=== PATIENT | female | born 1970 | race Caucasian/White ===

== ENCOUNTER → 2021-04-03 10:21 | Outpatient (BNVA) | payer BC, SELFPAY | PROVIDERS: PCP Family Medicine; Visit Provider Internal Medicine | DX: R21 Rash and other nonspecific skin eruption (principal); I89.0 Lymphedema, not elsewhere classified; M25.50 Pain in unspecified joint; Z79.899 Other long term (current) drug therapy; R53.83 Other fatigue; Z11.59 Encounter for screening for other viral diseases; H53.9 Unspecified visual disturbance | CPT/HCPCS: 82533; 99204 ==

== ENCOUNTER 2021-04-03 13:45 | Outpatient (CLI) | payer BC, SELFPAY ==
--- NOTE | 2021-04-03 13:53 | XR_ITS ---
WS: [email or web address] Exam: XR hand RT 2V [id number] Date/Time of Exam: 04/03/2021 1:56 PM Reason For Exam: M25.50 - Pain in unspecified joint Findings: No fractures, soft tissue swelling, or unusual calcifications are noted. The hand shows normal bony alignment. There is no irregularity of the bony architecture. XR/XR hand RT 2V [id number] IMPRESSION: Normal right hand.
--- NOTE | 2021-04-03 13:53 | XR_ITS ---
WS: [email or web address] Exam: XR sacroiliac jts m 3V [id number] Date/Time of Exam: 04/03/2021 1:56 PM Reason For Exam: L40.9 - Psoriasis, unspecified No fracture or dislocation. Moderate DJD of both SI joints. The SI joints are open. No destructive avel ne changes. XR/XR sacroiliac jts m 3V [id number] IMPRESSION: 1. Bilateral SI joint DJD. No fracture or bone destruction.
--- NOTE | 2021-04-03 13:53 | XR_ITS ---
WS: [email or web address] Exam: XR hand LT 2V [id number] Date/Time of Exam: 04/03/2021 1:56 PM Reason For Exam: M25.50 - Pain in unspecified joint Findings: No fractures, soft tissue swelling, or unusual calcifications are noted. The hand shows normal bony alignment. There is no irregularity of the bony architecture. XR/XR hand LT 2V [id number] IMPRESSION: Normal left hand.
--- NOTE | 2021-04-03 13:53 | XR_ITS ---
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 The lungs are hyperinflated and clear. Normal cardiomediastinal structures. No pleural effusions. Mil d spondylosis and degenerative disc changes in the thoracic spine. XR/XR chest 2V* 38127 IMPRESSION: 1. Pulmonary hyperinflation which might indicate obstructive lung disease. 2. No acute process noted.
--- NOTE | 2021-04-03 13:53 | XR_ITS ---
WS: [email or web address] Exam: XR foot LT 2V 15012 Date/Time of Exam: 04/03/2021 1:56 PM Reason For Exam: M25.50 - Pain in unspecified joint Findings: The foot was examined in multiple views and reveals no fractures or displacements of bone. No bony a nomalies are noted. The bony elements are in adequate alignment. The joint spaces are smooth and eq uidistant. XR/XR foot LT 2V 61176 IMPRESSION: Negative left foot.
--- NOTE | 2021-04-03 13:53 | XR_ITS ---
WS: [email or web address] Exam: XR foot RT 2V 74705 Date/Time of Exam: 04/03/2021 1:56 PM Reason For Exam: M25.50 - Pain in unspecified joint No fracture or dislocation. No soft tissue foreign bodies. Small periarticular calcification along th e fifth MP joint. XR/XR foot RT 2V 29065 IMPRESSION: 1. No fracture or other significant finding.
== END 2021-04-03 13:46 | disposition home or self-care (01) ==
LOC: RAD 13:50
PROVIDERS: PCP Family Medicine; Visit Provider Internal Medicine
DX: L40.9 Psoriasis, unspecified (principal); M25.50 Pain in unspecified joint; Z79.899 Other long term (current) drug therapy
CPT/HCPCS: 71046; 72202; 73120; 73620; 82533

== ENCOUNTER 2021-04-05 09:12 | Outpatient (CLI) | payer BC, SELFPAY ==
[2021-04-05 10:58] LABS: C Reactive Protein 0.7 mg/L (0.0-4.9); Complement C3 120 mg/dL (90-180); Creatine Phosphokinase 123 U/L (26-192)
[2021-04-05 11:12] LABS: Cortisol Random 4.88 ug/dL (2.47-19.5); Hepatitis B Core AB, Total Non-Reactive (Nonreactive); Hepatitis B Surface Antigen Non-Reactive (Nonreactive); Hepatitis C Virus Antibody Non-Reactive (Nonreactive)
[2021-04-05 11:30] LABS: Ferritin 82 ng/mL (15-150); Iron 100 ug/dL (37-145)
[2021-04-05 11:46] LABS: 25 Hydroxy Vitamin D 35 ng/mL (30-100); Vitamin B12 1038 pg/mL (232-1245)
[2021-04-06 13:14] LABS: Angiotensin Converting Enzyme 25 U/L (9-67)
[2021-04-06 14:00] LABS: Erythrocyte Sedimentation Rate 9 mm/hr (0-15)
== END 2021-04-05 09:13 | disposition home or self-care (01) ==
PROVIDERS: PCP Family Medicine; Visit Provider Internal Medicine
DX: I89.0 Lymphedema, not elsewhere classified (principal); M25.50 Pain in unspecified joint; R53.83 Other fatigue; Z79.899 Other long term (current) drug therapy; Z11.59 Encounter for screening for other viral diseases
CPT/HCPCS: 36415; 82164; 82306; 82533; 82550; 82595; 82607; 82728; 83540; 85651; 86140; 86160; 86704; 86803; 87340

== ENCOUNTER 2021-04-18 09:59 | Outpatient (CLI) | payer BC, SELFPAY ==
[2021-04-23 21:07] LABS: Cryoglobulins Qualitative None Detected (None Detected)
== END 2021-04-18 10:00 | disposition home or self-care (01) ==
LOC: LAB 10:13
PROVIDERS: PCP Family Medicine; Visit Provider Internal Medicine
DX: M25.59 Pain in other specified joint (principal); Z79.899 Other long term (current) drug therapy; I89.0 Lymphedema, not elsewhere classified; R53.83 Other fatigue
CPT/HCPCS: 36415; 82595

== ENCOUNTER → 2021-04-19 11:29 | Outpatient (BNVA) | payer BC, SELFPAY | PROVIDERS: PCP Family Medicine; Visit Provider Internal Medicine | DX: R21 Rash and other nonspecific skin eruption (principal); M25.50 Pain in unspecified joint; M35.9 Systemic involvement of connective tissue, unspecified; I73.00 Raynaud's syndrome without gangrene; R53.83 Other fatigue; M53.3 Sacrococcygeal disorders, not elsewhere classified | CPT/HCPCS: 99214 ==

== ENCOUNTER 2021-05-15 12:51 | Outpatient (CLI) | payer BC, SELFPAY ==
--- NOTE | 2021-05-15 13:17 | ECG_ITS ---
[facility] Test Date: 2021-05-15 Pat Name: Mercedes Hill Department: Room: Gender: Female Home Manager: Gilma Case : [id number] Requested By: Terence Charles Order Number: [id number] Apolonia MD: Rizwan Durham M.D. Interpretive Statements NAME OF STUDY: TREADMILL STRESS TEST INDICATION: Chest Pain, PROCEDURE: At the baseline, the patient's blood pressure was 123/78 with a heart rate of 90/min. The baseline electrocardiogram showed normal sinus rhythm with some nonspecific T wave changes. Heavy baseline artifact were noted. The patient exercised for 6 minutes and 40 seconds on a standard Yogesh protocol. Patient attained a maximum heart rate of 168 beats per minute(98% of the maximum predicted heart rate) with a blood pressure at the peak exercise of 195/97 mm Hg. The EKG at the peak exercise revealed diffuse nonspecific ST-T changes. Patient did not have any chest pain or any significant cardiac arrhythmias with the exercise During the recovery phase, there were no new changes. Blood pressure at the end of the recovery phase was 132/71 mm Hg with a heart rate of 96 per minute. CONCLUSION: 1. Nonspecific EKG changes with the treadmill exercise 2. No exercise-induced chest pain or cardiac arrhythmia 3. Fair exercise tolerance, attained a maximum of 10.2 METs 4. Hypertensive response to exercise. Electronically Signed On 05-18-2021 10:45:20 [employer] by Rizwan Durham M.D. [email or web address]
[2021-05-15 13:18] VITALS: BMI 32.2
[2021-05-15 13:35] VITALS: BP 150/59; PULSE 100
== END 2021-05-15 12:52 | disposition home or self-care (01) ==
LOC: CDL 12:52
PROVIDERS: PCP Family Medicine; Visit Provider Family Medicine
DX: R07.9 Chest pain, unspecified (principal)
CPT/HCPCS: 93017

== ENCOUNTER → 2021-09-17 16:08 | Outpatient (BNVA) | payer BC, SELFPAY | PROVIDERS: PCP Family Medicine; Visit Provider Internal Medicine | DX: M25.50 Pain in unspecified joint (principal) | CPT/HCPCS: 36415; 80053; 81003; 82550; 84100; 84182; 84443; 85025; 85651; 86235 ==

== ENCOUNTER 2021-10-17 06:00 | Outpatient (RCR) | payer BC, SELFPAY | END 2021-11-15 23:59 | disposition home or self-care (01) | LOC: SPT 06:00 | PROVIDERS: PCP Family Medicine; Referring Provider Family Medicine; Visit Provider Family Medicine | DX: R60.0 Localized edema (principal) | CPT/HCPCS: 97110; 97140; 97161 ==

== ENCOUNTER 2021-11-27 12:02 | Outpatient (CLI) | payer OTHER, SELFPAY ==
[2021-11-27 12:32] LABS: Basophils % 0.6 %; Eosinophils # 0.2 10^3/uL (0.0-0.8); Eosinophils % 3.9 %; Hematocrit 35.9 % (37.0-47.0); Hemoglobin 12.1 g/dL (11.5-15.3); Lymphocytes # 2.5 10^3/uL (0.8-4.8); Lymphocytes % 51.6 %; Mean Corpuscular HGB Conc 33.7 g/dL (30.0-36.0); Mean Corpuscular Hemoglobin 32.4 pg (28.0-34.0); Mean Corpuscular Volume 96.2 fl (81-99); Mean Platelet Volume 11.8 fL (7.4-10.4); Monocytes # 0.5 10^3/uL (0.2-0.9); Monocytes % 9.4 %; Neutrophils # 1.67 10^3/uL (1.8-7.7); Neutrophils % 34.3 %; Nucleated Red Blood Cells % 0 %; Platelet Count 156 10^3/cmm (130-400); Red Blood Count 3.73 10^6/uL (4.1-5.3); Red Cell Distribution Width 11.9 % (12.1-15.1); White Blood Count 4.9 10^3/uL (4.0-10.0)
[2021-11-27 12:36] LABS: Erythrocyte Sedimentation Rate 4 mm/hr (0-15)
[2021-11-27 13:01] LABS: Alanine Aminotransferase 15 U/L (0-33); Albumin Level 3.9 g/dL (3.5-5.2); Alkaline Phosphatase 37 IU/L (35-105); Anion Gap 10.7 (5-19); Aspartate Amino Transferase 19 U/L (0-32); Blood Urea Nitrogen 11 mg/dL (6-20); Calcium 8.5 mg/dL (8.5-10.5); Carbon Dioxide 29 mmol/L (22-29); Chloride 102 mmol/L (98-107); Glomerular Filtration Rate 105.8 mL/min (90-130); Glucose 86 mg/dL (65-115); Osmolality Calculated 285 mOsm/kg (285-295); Potassium 3.7 mmol/L (3.5-5.1); Sodium 138 mmol/L (136-145); Total Bilirubin 0.2 mg/dL (0.15-1.2); Total Protein 6.9 g/dL (6.6-8.7)
[2021-11-27 13:10] LABS: Slide Review Slide Review Perform
--- NOTE | 2021-11-27 16:53 | XR_ITS ---
WS: [email or web address] LUMBAR SPINE: 3 VIEWS TECHNIQUE: AP, lateral and L5-S1 spot. HISTORY: R53.1 - Weakness COMPARISON: None available. Lateral radiograph is rotated. Posterior alignment appears near normal with only very minimal LEFT cu rvature of the lumbar spine. Facet joints are mildly sclerotic and narrowed throughout the lumbar spi ne. Disc spaces are mildly narrowed. Small endplate osteophytes. No fracture identified. SI joints are symmetric bilaterally. No soft tissue abnormalities. Prior cholecystectomy. XR/XR lumbar spine 2-3V* 23241 IMPRESSION: 1. Moderate spondylitic changes throughout the lumbar spine. No fracture. 2. Prior cholecystectomy.
--- NOTE | 2021-11-27 16:53 | XR_ITS ---
WS: [email or web address] THORACIC SPINE TECHNIQUE: AP and lateral views are performed. HISTORY: R53.1 - Weakness COMPARISON: None available. Mild increase in thoracic kyphosis. Multilevel mild disc space narrowing and osteophytosis throughout the thoracic spine. No fractures. Mild curvature to the LEFT of the lower thoracic spine. XR/XR thoracic spine 3V* [id number] IMPRESSION: Mild LEFT curvature and moderate spondylosis. No fracture.
--- NOTE | 2021-11-27 16:53 | XR_ITS ---
WS: [email or web address] CERVICAL SPINE 3 VIEWS HISTORY: R53.1 - Weakness COMPARISON: None available. Straightening of the normal cervical lordosis. C5 retrolisthesis by 3 mm. Very minimal retrolisthesis less than 2 mm of C4 and C6. Disc spaces are moderately narrowed at C5-6 and C6-7. Lateral masses and odontoid process are incompletely visualized. No prevertebral soft tissue swelling . Soft tissues are normal. XR/XR cervical spine 3V* [id number] IMPRESSION: 1. Straightening of the normal cervical lordosis. 2. C5 retrolisthesis by 3 mm. 3. Moderate degenerative disc disease at C5-6 and C6-7.
== END 2021-11-27 12:03 | disposition home or self-care (01) ==
PROVIDERS: PCP Family Medicine; Visit Provider Internal Medicine
DX: M35.9 Systemic involvement of connective tissue, unspecified (principal); M53.3 Sacrococcygeal disorders, not elsewhere classified; Z79.899 Other long term (current) drug therapy; R53.1 Weakness; M25.50 Pain in unspecified joint; R53.83 Other fatigue
CPT/HCPCS: 72040; 72072; 72100; 80053; 85025; 85651; 86140

== ENCOUNTER → 2022-10-10 16:31 | Outpatient (BNVA) | payer OTHER, SELFPAY | PROVIDERS: PCP Family Medicine; Visit Provider Internal Medicine | DX: M35.9 Systemic involvement of connective tissue, unspecified (principal); M54.50 Low back pain, unspecified; R29.898 Other symptoms and signs involving the musculoskeletal system | CPT/HCPCS: 36415; 80053; 84443; 85025; 85651; 86140 ==

== ENCOUNTER → 2022-11-12 09:17 | Outpatient (BNVA) | payer OTHER, SELFPAY | PROVIDERS: PCP Family Medicine; Visit Provider Physician Assistant | DX: M54.2 Cervicalgia (principal) | CPT/HCPCS: 72050 ==

== ENCOUNTER 2022-12-02 09:22 | Outpatient (CLI) | payer OTHER, SELFPAY ==
--- NOTE | 2022-12-02 09:30 | MR_ITS ---
WS: [email or web address] MRI CERVICAL SPINE NONCONTRAST TECHNIQUE: Sagittal T1, T2 and STIR imaging. Axial T2, gradient, and fiesta imaging. CLINICAL INFORMATION: chronic neck pain COMPARISON: None. FINDINGS: Straightening of the normal cervical lordosis. Moderate spondylitic changes. Slight retrolisthesis C5 on C6. Disc bulging worse at C5-C6 and C6-C7. C2-C3: Normal. C3-C4: Mild facet arthropathy. Spinal canal and foramen are patent. C4-C5: Mild facet arthropathy. Mild LEFT and no significant RIGHT foraminal narrowing. Spinal canal i s patent. C5-C6: Slight retrolisthesis. Disc osteophyte complex with slight indentation on cervical cord. Mild central canal stenosis. Moderate to severe RIGHT and mild to moderate LEFT bony foraminal narrowing. Mild facet arthropathy. C6-C7: Central disc osteophyte protrusion with indentation on cervical cord. Mild central canal steno sis. Moderate LEFT and mild RIGHT bony foraminal narrowing. Mild facet arthropathy. C7-T1: Mild facet arthropathy. Spinal canal and foramen are patent Visualized brain stem structures: Normal. Prevertebral soft tissues: Normal. MR/MR cervical spin wo con* [id number] IMPRESSION: 1. Straightening of the normal cervical lordosis. Slight retrolisthesis C5 on C6. 2. Mild central canal stenosis C5-C6 and C6-C7 due to disc osteophyte protrusi ons with slight indentation on cervical cord described above. 3. Moderate to severe RIGHT C5-C6 bony foraminal narrowing. 4. Mild to moderate LEFT C5-C6 and moderate LEFT C6-C7 bony foraminal narrowin g. 5. Moderate facet arthropathy C5-C6 and C6-C7.
== END 2022-12-02 09:23 | disposition home or self-care (01) ==
LOC: RAD 09:24
PROVIDERS: PCP Family Medicine; Visit Provider Physician Assistant
DX: M48.02 Spinal stenosis, cervical region (principal); M47.812 Spondylosis without myelopathy or radiculopathy, cervical region; R53.1 Weakness; G89.29 Other chronic pain
CPT/HCPCS: 72141

== ENCOUNTER 2023-01-13 14:16 | Outpatient (CLI) | payer OTHER, SELFPAY ==
--- NOTE | 2023-01-13 14:27 | MM_ITS ---
WS: [email or web address] SCREENING DIGITAL TOMOSYNTHESIS MAMMOGRAM WITH CAD HISTORY: SCREENING COMPARISON: None available. Bilateral CC and MLO with tomosynthesis views submitted. Synthetic mammography reviewed. Computer aid ed detection analyzed. Breast composition: There are scattered areas of fibroglandular density. No suspicious masses, microc alcifications or architectural distortion. IMPRESSION: MM/[place] [id number] BI-RADS: 1-Negative FOLLOW UP: 1 Year Follow-up
== END 2023-01-13 14:17 | disposition home or self-care (01) ==
LOC: RAD 14:18 → MOBLMAM 14:26
PROVIDERS: PCP Family Medicine; Visit Provider Family Medicine
DX: Z12.31 Encounter for screening mammogram for malignant neoplasm of breast (principal)
CPT/HCPCS: 77063; 77067

== ENCOUNTER → 2023-01-28 16:05 | Outpatient (BNVA) | payer OTHER, SELFPAY | PROVIDERS: PCP Family Medicine; Visit Provider Internal Medicine | DX: R20.2 Paresthesia of skin (principal); M35.9 Systemic involvement of connective tissue, unspecified; M54.50 Low back pain, unspecified | CPT/HCPCS: 36415; 80053; 83520; 85025; 85651; 86140 ==

== ENCOUNTER → 2023-05-08 07:59 | Outpatient (BNVA) | payer OTHER, SELFPAY | PROVIDERS: PCP Family Medicine; Visit Provider Physician Assistant | DX: M47.22 Other spondylosis with radiculopathy, cervical region; M48.02 Spinal stenosis, cervical region; M50.221 Other cervical disc displacement at C4-C5 level; M50.222 Other cervical disc displacement at C5-C6 level | CPT/HCPCS: 72040; 72050 ==

== ENCOUNTER 2023-05-08 10:24 | Outpatient (CLI) | payer OTHER, SELFPAY ==
[2023-05-08 10:56] LABS: Basophils % 0.5 %; Eosinophils % 1.1 %; Lymphocytes # 1.7 10^3/uL (0.8-4.8); Lymphocytes % 43.4 %; Mean Corpuscular HGB Conc 33.7 g/dL (30-55); Mean Corpuscular Hemoglobin 32.9 pg (27-33); Mean Corpuscular Volume 97.7 fl (85-98); Mean Platelet Volume 11.2 fL (7.4-10.4); Monocytes # 0.4 10^3/uL (0.2-0.9); Monocytes % 11.3 %; Neutrophils # 1.65 10^3/uL (1.8-7.7); Neutrophils % 43.4 %; Nucleated Red Blood Cells % 0 %; Platelet Count 181 10^3/cmm (157-399); Red Blood Count 3.89 10^6/uL (3.85-5.65); Red Cell Distribution Width 11.5 % (12.1-15.1)
[2023-05-08 10:57] LABS: Erythrocyte Sedimentation Rate 9 mm/hr (0-15)
[2023-05-08 12:42] LABS: Alanine Aminotransferase 13 U/L (0-33); Albumin Level 4.2 g/dL (3.5-5.2); Alkaline Phosphatase 47 U/L (35-105); Anion Gap 14.5 (5-19); Aspartate Amino Transferase 17 U/L (0-32); Blood Urea Nitrogen 7 mg/dL (6-20); Carbon Dioxide 24 mmol/L (22-29); Chloride 104 mmol/L (98-107); Globulin 2.8 g/dL (1.3-4.6); Glomerular Filtration Rate 167.6 mL/min (90-130); Glucose 90 mg/dL (65-115); Osmolality Calculated 286 mOsm/kg (285-295); Potassium 3.5 mmol/L (3.5-5.1); Sodium 139 mmol/L (136-145); Total Bilirubin 0.3 mg/dL (0.15-1.2)
== END 2023-05-08 10:25 | disposition home or self-care (01) ==
LOC: LAB 10:24
PROVIDERS: PCP Family Medicine; Visit Provider Internal Medicine
DX: M25.50 Pain in unspecified joint (principal)
CPT/HCPCS: 36415; 80053; 85025; 85651; 86140

== ENCOUNTER 2024-01-28 14:57 | Outpatient (CLI) | payer OTHER, SELFPAY ==
--- NOTE | 2024-01-28 15:00 | MM_ITS ---
WS: [email or web address] BILATERAL 3D TOMOSYNTHESIS DIGITAL SCREENING MAMMOGRAPHY WITH CAD CLINICAL INFORMATION: SCREENING HISTORY: Screening mammogram. No current complaints. COMPARISON: 2022 TECHNIQUE: Bilateral CC and MLO views. FINDINGS: Scattered fibroglandular densities bilaterally. No suspicious focal mass, asymmetry, calcifications, or architectural distortion. No evidence of malignancy. Few incidental punctate calcifications. MM/[place] [id number] IMPRESSION: DENSITY: There are scattered areas of fibroglandular density. BI-RADS: 2 - Benign. FOLLOW UP: 1 Year Follow-up Recommend return to annual screening mammography.
== END 2024-01-28 14:58 | disposition home or self-care (01) ==
LOC: MOBLMAM 14:58
PROVIDERS: PCP Family Medicine; Visit Provider Family Medicine
DX: Z12.31 Encounter for screening mammogram for malignant neoplasm of breast (principal)
CPT/HCPCS: 77063; 77067

== ENCOUNTER → 2024-07-28 10:38 | Outpatient (BNVA) | payer OTHER, SELFPAY | PROVIDERS: PCP Family Medicine; Visit Provider Podiatrist Foot & Ankle Surgery | DX: M79.672 Pain in left foot (principal); M21.612 Bunion of left foot; M25.872 Other specified joint disorders, left ankle and foot | CPT/HCPCS: 73630 ==

== ENCOUNTER 2025-03-17 10:51 | Outpatient (CLI) | payer OTHER, SELFPAY ==
--- NOTE | 2025-03-17 11:00 | MM_ITS ---
WS: [email or web address] BILATERAL SCREENING DIGITAL TOMOSYNTHESIS MAMMOGRAM WITH CAD HISTORY: SCREENING COMPARISON: 01/28/2024, 01/13/2023, 01/04/2020 Bilateral CC and MLO views with tomosynthesis and synthetic mammography submitted. Computer aided detection analyzed. Breast composition: There are scattered areas of fibroglandular density. No suspicious masses, microcalcifications or architectural distortion. Benign calcifications RIGHT breast. MM/MM scr BI tomosynthesis [id number] IMPRESSION: BI-RADS: 2 - Benign. FOLLOW UP: 1 Year Follow-up
== END 2025-03-17 10:52 | disposition home or self-care (01) ==
LOC: MOBLMAM 10:52
PROVIDERS: PCP Family Medicine; Visit Provider Family Medicine
DX: Z12.31 Encounter for screening mammogram for malignant neoplasm of breast (principal); R92.323 Mammographic fibroglandular density, bilateral breasts; R92.1 Mammographic calcification found on diagnostic imaging of breast
CPT/HCPCS: 77063; 77067